=== PATIENT | female | born 1995 | race Two or more races ===

== ENCOUNTER 2020-12-07 22:05 | Emergency (ER) | payer MEDICAID, OTHER ==
[~2020-12-07] VITALS: Ht 157.5 cm; Wt 72.6 kg
[2020-12-07 22:40] LABS: Basophils # (auto) 0 10 ^3/uL (0-0.2); Basophils % (auto) 0.2 % (0.0-2.0); Eosinophils # (auto) 0.1 10 ^3/uL (0-0.8); Eosinophils % (auto) 0.6 % (0.0-7.0); Hematocrit 40.7 % (36.0-46.0); Hemoglobin 14.1 g/dL (12.2-16.2); Lymphocytes % (auto) 41.8 % (10.0-50.0); Mean Corpuscular Hemoglobin 29.1 pg (28.0-32.0); Mean Corpuscular Hgb Conc. 34.6 g/dL (32.0-36.0); Mean Corpuscular Volume 84.1 fL (80.0-100.0); Monocytes # (auto) 0.6 10 ^3/uL (0-1.3); Monocytes % (auto) 5.3 % (0.0-12.0); Neutrophils # (auto) 6.3 10 ^3/uL (1.6-8.6); Neutrophils % (auto) 52.1 % (37.0-80.0); Red Blood Cells 4.84 10^6/uL (4.0-5.20); Red Cell Distribution Width 14.1 % (11.8-14.3)
[2020-12-07 23:11] LABS: Alanine Aminotransferase 18 U/L (13-56); Albumin 3.8 g/dL (3.4-5.0); Anion Gap 5 (5-15); Aspartate Aminotransferase 12 U/L (15-37); BUN/Creatinine Ratio 17.1; Blood Urea Nitrogen 13 mg/dL (7-18); Calcium 8.7 mg/dL (8.5-10.1); Carbon Dioxide 25 mmol/L (21-32); Chloride 110 mmol/L (98-107); GFR African American 120 mL/min; GFR Non-African American 99 mL/min; Glucose 94 mg/dL (74-106); Potassium 4.2 mmol/L (3.5-5.1); Sodium 140 mmol/L (136-145)
[2020-12-07 23:17] LABS: Alkaline Phosphatase 73 U/L (45-117); Bilirubin, Total 0.1 mg/dL (0.2-1.0); Total Protein 7.5 g/dL (6.4-8.2)
[2020-12-08 00:38] LABS: Urine Bacteria NONE SEEN /hpf (None Seen); Urine Blood Negative /uL (Negative); Urine Specific Gravity 1.022 (1.001-1.035); Urine WBC 5 /hpf (0 - 5)
[2020-12-08] MEDS ORDERED: cefTRIAXone 1GM/50ML D5W 50 ML IV ONE (01:15)
[2020-12-08 02:00] VITALS: BP 109/51
== END 2020-12-08 02:57 | disposition home or self-care (01) ==
LOC: ER 22:08
DX: N39.0 Urinary tract infection, site not specified (principal); F41.9 Anxiety disorder, unspecified; Z20.822 Contact with and (suspected) exposure to COVID-19; Z88.1 Allergy status to other antibiotic agents; Z88.8 Allergy status to other drugs, medicaments and biological substances
CPT/HCPCS: 36415; 71045; 80053; 81001; 83880; 84484; 84702; 85025; 85379; 87426; 93005; 96365; 99285; J0696